=== PATIENT | female | born 1960 | race African-American/Black ===

== ENCOUNTER 2016-09-16 16:23 | Emergency (ER) | payer OTHER ==
[~2016-09-16] VITALS: Ht 157.5 cm; Wt 68.0 kg
[2016-09-16 16:36] VITALS: BP 159/78
--- NOTE | 2016-09-16 19:42 | NUR ---
AMBULATED TO ER BED 6
--- NOTE | 2016-09-16 19:45 | NUR ---
55 Y/O HERE C/O RIGHT KNEE PAIN X3 MONTHS AND RIGHT EAR PAIN X1 YEAR. NO S/S OF DISTRESS NOTED AT THIS MOMENT. ER MD AWARED OF IT.
[2016-09-16 20:41] VITALS: BP 144/72
--- NOTE | 2016-09-16 20:41 | NUR ---
PER ER MD PT STABLE FOR D/C, AWARED OF V/S. NO S/S OF DISTRESS PRESENT AT D/C. Written and verbal after care instructions given and explained. Patient alert, oriented and verbalized understanding of instructions. Ambulatory with steady gait. All questions addressed prior to discharge. ID band removed. Patient advised to follow up with PMD. Rx of PREDNISONE, CERUMEX, FLONASE AND NORCO given. Patient educated on indication of medication including possible reaction and side effects. Opportunity to ask questions provided and answered.
== END 2016-09-16 20:41 | disposition home or self-care (01) ==
LOC: MED 16:28
DX: M25.561 Pain in right knee (principal); H93.8X3 Other specified disorders of ear, bilateral; R09.81 Nasal congestion; Z88.6 Allergy status to analgesic agent; Z88.1 Allergy status to other antibiotic agents

== ENCOUNTER 2017-12-05 12:26 | Emergency (ER) | payer OTHER ==
[~2017-12-05] VITALS: Ht 157.5 cm; Wt 68.0 kg
--- NOTE | 2017-12-05 12:43 | NUR ---
Patient ambulated to bed 4. RN evaluating patient at bedside.
--- NOTE | 2017-12-05 12:45 | NUR ---
PATIENT PRESENTS TO ED WITH C/O RT EARACHE, NASAL CONGESTION,CANT BREATHE, RT KNEE PAIN, RASHES ALL OVER THE BODY, SORETHROAT FOR 2 MONTHS; DENIES N/V/D; SKIN IS PINK/WARM/DRY; AAOX4 WITH EVEN AND STEADY GAIT; LUNGS CLEAR BL; HR EVEN AND REGULAR; PT DENIES ANY FEVER, OR CP AT THIS TIME; PATIENT STATES PAIN OF 9/10 AT THIS TIME; VSS; PATIENT POSITIONED FOR COMFORT; HOB ELEVATED; BEDRAILS UP X2; BED DOWN. ER MD MADE AWARE OF PT STATUS.
--- NOTE | 2017-12-05 13:14 | NUR ---
Dr. Antonio evaluating patient at bedside.
[2017-12-05 13:27] VITALS: BP 165/71
--- NOTE | 2017-12-05 13:27 | NUR ---
Patient discharged with v/s stable. Written and verbal after care instructions given and explained. Patient alert, oriented and verbalized understanding of instructions. Ambulatory with steady gait. All questions addressed prior to discharge. ID band removed. Patient advised to follow up with PMD. Rx of prednisone, diphenhydramine, norco given. Patient educated on indication of medication including possible reaction and side effects. Opportunity to ask questions provided and answered.
== END 2017-12-05 13:27 | disposition home or self-care (01) ==
LOC: MED 12:26
DX: G89.29 Other chronic pain (principal); R09.81 Nasal congestion; M25.561 Pain in right knee; Z88.6 Allergy status to analgesic agent; Z88.1 Allergy status to other antibiotic agents; Z90.89 Acquired absence of other organs
CPT/HCPCS: 99283

== ENCOUNTER 2018-08-20 09:50 | Emergency (ER) | payer OTHER ==
[~2018-08-20] VITALS: Ht 157.5 cm; Wt 72.6 kg
[2018-08-20 10:05] VITALS: BP 159/74
[2018-08-20] MEDS ORDERED: predniSONE 20 MG TAB PO ONE (10:30)
[2018-08-20 10:56] VITALS: BP 148/76
== END 2018-08-20 10:57 | disposition home or self-care (01) ==
LOC: MED 09:50
DX: G89.29 Other chronic pain (principal); M25.561 Pain in right knee; R06.02 Shortness of breath; H61.21 Impacted cerumen, right ear; Z88.1 Allergy status to other antibiotic agents
CPT/HCPCS: 99283; J7512

== ENCOUNTER 2019-02-11 17:20 | Emergency (ER) | payer OTHER ==
[~2019-02-11] VITALS: Ht 157.5 cm; Wt 68.0 kg
[2019-02-11 17:32] VITALS: BP 143/77
--- NOTE | 2019-02-11 17:45 | NUR ---
C/O GENERALIZED WEAKNESS X2 MONTH, STATED RIGHT EAR PAIN, DIFFICULTY BREATHING, LEFT KNEE PAIN, BODY ACHES. DENIES N/V/D; SKIN IS PINK/WARM/DRY; AAOX4 WITH EVEN AND STEADY GAIT; LUNGS CLEAR BL; HR EVEN AND REGULAR; PT DENIES ANY FEVER, CP, OR COUGH AT THIS TIME; PATIENT STATES PAIN OF 10/10 AT THIS TIME; VSS; PATIENT POSITIONED FOR COMFORT; HOB ELEVATED; BEDRAILS UP X2; BED DOWN. ER MD MADE AWARE OF PT STATUS.
[2019-02-11 18:34] LABS: APPEARANCE,URINE CLEAR (CLEAR); BILIRUBIN,URINE NEGATIVE (NEGATIVE); BLOOD, URINE NEGATIVE (NEGATIVE); COLOR,URINE YELLOW (YELLOW); LEUKOCYTE ESTERASE ,URINE NEGATIVE (NEGATIVE); NITRITE, URINE NEGATIVE (NEGATIVE); UGLUCOSE NEGATIVE (NEGATIVE)
[2019-02-11 18:37] LABS: BASOPHILS # (AUTO) 0.1 K/uL (0.00-0.22); BASOPHILS % (AUTO) 1.2 % (0.0-2.0); EOSINOPHILS # (AUTO) 0.7 K/uL (0-0.4); EOSINOPHILS % (AUTO) 10.4 % (0.0-4.0); HEMATOCRIT 46.4 % (36-48); LYMPHOCYTES # (AUTO) 2.5 K/uL (2.5-16.5); LYMPHOCYTES % (AUTO) 37.5 % (20.5-51.1); MEAN CORPUSCULAR HEMOGLOBIN 28 pg (27-31); MEAN CORPUSCULAR HGB CONC 32 g/dL (33-37); MEAN CORPUSCULAR VOLUME 87.2 fL (80-94); MONOCYTES # (AUTO) 0.8 K/uL (0.8-1.0); MONOCYTES % (AUTO) 11.2 % (1.7-9.3); NEUTROPHILS # (AUTO) 2.7 K/uL (1.8-7.7); NEUTROPHILS % (AUTO) 39.7 % (42.2-75.2); PLATELET COUNT (AUTO) 286 K/uL (140-450); RED BLOOD CELL COUNT(AUTO) 5.33 MIL/uL (4.20-5.40); RED CELL DISTRIBUTION WIDTH 14.2 % (11.6-13.7); WHITE BLOOD COUNT (AUTO) 6.7 K/uL (4.8-10.8)
[2019-02-11 18:43] LABS: ANION GAP 9.5 (8-16); CARBON DIOXIDE 28.7 mmol/L (21-32); CREATININE 0.8 mg/dL (0.6-1.3); POTASSIUM 4.2 mmol/L (3.5-5.1)
[2019-02-11 18:50] LABS: ALBUMIN 3.4 g/dL (3.4-5.0); TOTAL BILIRUBIN 0.4 mg/dL (0.0-1.0)
[2019-02-11 18:52] LABS: PROTHROMBIN TIME 9.1 secs (10.8-13.4)
--- NOTE | 2019-02-11 19:10 | NUR ---
ASSUMED CARE OF PT FROM STEVEN AGUAYO
[2019-02-11] MEDS ORDERED: predniSONE 20 MG TAB PO ONE (19:45)
--- NOTE | 2019-02-11 20:20 | NUR ---
PT IV REMOVED. TIP INTACT. BLEEDING CONTROLLED.
[2019-02-11 20:27] VITALS: BP 103/48
--- NOTE | 2019-02-11 20:28 | NUR ---
Patient discharged with v/s stable. Written and verbal after care instructions given and explained. Patient alert, oriented and verbalized understanding of instructions. Ambulatory with steady gait. All questions addressed prior to discharge. ID band removed. Patient advised to follow up with PMD. Rx of AUGMENTIN AND PREDNISONE given. Patient educated on indication of medication including possible reaction and side effects BY DR BRO, PT DC BY DR BRO. Opportunity to ask questions provided and answered.
== END 2019-02-11 20:20 | disposition home or self-care (01) ==
LOC: MED 17:20
DX: J01.90 Acute sinusitis, unspecified (principal); M25.561 Pain in right knee; F17.210 Nicotine dependence, cigarettes, uncomplicated; Z88.1 Allergy status to other antibiotic agents; Z88.6 Allergy status to analgesic agent
CPT/HCPCS: 36415; 71045; 80053; 81003; 83880; 84484; 85025; 85610; 85730; 93005; 99284; J7512; Q0092

== ENCOUNTER 2019-06-15 15:50 | Emergency (ER) | payer OTHER ==
[~2019-06-15] VITALS: Ht 157.5 cm; Wt 70.8 kg
[2019-06-15 16:07] VITALS: BP 157/97
--- NOTE | 2019-06-15 16:11 | NUR ---
ASSISTED PT TO WAIT IN THE LOBBY AND INFORMED PT WILL CALL HER IN WHEN A BED IS AVAILABLE.
[2019-06-15] MEDS ORDERED: SODIUM CHLORIDE FLUSH 10 ML SYR IVF STA (16:17)
[2019-06-15 16:40] LABS: BASOPHILS # (AUTO) 0.1 K/uL (0.00-0.22); BASOPHILS % (AUTO) 1.9 % (0.0-2.0); EOSINOPHILS # (AUTO) 0.6 K/uL (0-0.4); EOSINOPHILS % (AUTO) 9.9 % (0.0-4.0); HEMOGLOBIN 14.9 g/dL (12.0-16.0); LYMPHOCYTES # (AUTO) 1.8 K/uL (2.5-16.5); LYMPHOCYTES % (AUTO) 31.1 % (20.5-51.1); MEAN CORPUSCULAR HEMOGLOBIN 29 pg (27-31); MEAN CORPUSCULAR HGB CONC 32 g/dL (33-37); MEAN CORPUSCULAR VOLUME 88.2 fL (80-94); MONOCYTES # (AUTO) 0.6 K/uL (0.8-1.0); MONOCYTES % (AUTO) 11.3 % (1.7-9.3); NEUTROPHILS # (AUTO) 2.6 K/uL (1.8-7.7); NEUTROPHILS % (AUTO) 45.8 % (42.2-75.2); PLATELET COUNT (AUTO) 249 K/uL (140-450); RED BLOOD CELL COUNT(AUTO) 5.22 MIL/uL (4.20-5.40); WHITE BLOOD COUNT (AUTO) 5.7 K/uL (4.8-10.8)
[2019-06-15 17:01] LABS: ANION GAP 13.2 (8-16); CARBON DIOXIDE 28.9 mmol/L (21-32); CREATININE 0.9 mg/dL (0.6-1.3); POTASSIUM 4.1 mmol/L (3.5-5.1)
[2019-06-15 17:15] LABS: ALBUMIN 3.7 g/dL (3.4-5.0); TOTAL BILIRUBIN 0.4 mg/dL (0.0-1.0)
[2019-06-15 18:05] LABS: APPEARANCE,URINE CLEAR (CLEAR); BILIRUBIN,URINE NEGATIVE (NEGATIVE); BLOOD, URINE NEGATIVE (NEGATIVE); COLOR,URINE YELLOW (YELLOW); LEUKOCYTE ESTERASE ,URINE NEGATIVE (NEGATIVE); NITRITE, URINE NEGATIVE (NEGATIVE); UGLUCOSE NEGATIVE (NEGATIVE)
--- NOTE | 2019-06-15 18:54 | NUR ---
PT TAKEN TO BED 5.
--- NOTE | 2019-06-15 19:04 | NUR ---
58 Y/O F PRESENTS TO ER C/O EPIGASTRIC PAIN AND NASAL CONGESTION. PER PT "I TOOK SOME BAKING SODA AND BURPED AND FELT BETTER." DENIES ANY PAIN AT THIS TIME. PAIN 0/10. PT ALSO C/O OF NASAL CONGESTION. PT CURRENTLY HAS TISSUES IN MOUTH NOSTRILS. PT STATES "I AM ONLY HERE FOR PREDNISONE AND ANTIBIOTICS THAT'S WHAT I COME HERE FOR ALL THE TIME." HOB ELEVATED, BED IN LOWEST POSITION, BED RAIL UP X1. WAITING FOR ERMD TO EVALUATE PT. ALLERGIES: ASPIRIN AND KEFLEX MED HX: NONE
--- NOTE | 2019-06-15 19:14 | NUR ---
TRANSFER OF CARE REPORT GIVEN TO DEDE FUNEZ
[2019-06-15] MEDS ORDERED: FAMOTIDINE 20 MG TAB PO ONE (19:45)
[2019-06-15] MEDS ORDERED: predniSONE 20 MG TAB PO ONE (19:45)
[2019-06-15 19:56] VITALS: BP 145/88
--- NOTE | 2019-06-15 19:56 | NUR ---
PT DISCHARGED BY DR BRO, PAPERWORK PROVIDED. RX PREDNISONE, NEXIUM, AUGMENTIN. EDUCATED PT REGARDING MEDICATIONS AND S/E. EDUCATED PT REGARDING D/C DIAGNOSIS AND INSTRUCTIONS. PT VERBALIZED UNDERSTANDING OF TEACHING. TOLD PT TO FOLLOW UP WITH PCP AND WHEN TO RETURN TO ED. PT VSS. ALL QUESTIONS ANSWERED.
== END 2019-06-15 19:56 | disposition home or self-care (01) ==
LOC: MED 15:50
DX: J06.9 Acute upper respiratory infection, unspecified (principal); K21.9 Gastro-esophageal reflux disease without esophagitis; E11.9 Type 2 diabetes mellitus without complications; F17.200 Nicotine dependence, unspecified, uncomplicated; Z88.1 Allergy status to other antibiotic agents; Z88.6 Allergy status to analgesic agent; Z71.6 Tobacco abuse counseling
CPT/HCPCS: 36415; 80053; 81003; 83690; 85025; 99283; J7512

== ENCOUNTER 2020-07-23 11:27 | Emergency (ER) | payer OTHER ==
[~2020-07-23] VITALS: Ht 157.5 cm; Wt 68.0 kg
[2020-07-23 12:00] VITALS: BP 169/99
--- NOTE | 2020-07-23 12:05 | NUR ---
PT C/O CONGESTION AND R ARM PAIN X2 DAYS. PT STATES SHE SLEPT WRONG ON HER ARM AND NOW HAS LIMITED MOBILITY AND PAIN NEAR THE SHOULDER JOINT. NO SLURRED SPEECH OR FACIAL DROOP NOTED, BUE/BLE STRENGTH STRONG AND EQUAL. PT STATES SHE WAS CURRENTLY TAKING PREDNISONE FOR A SINUS INFECTION.
[2020-07-23 15:00] VITALS: BP 169/99
--- NOTE | 2020-07-23 15:00 | NUR ---
Patient discharged with v/s stable. Written and verbal after care instructions given and explained. Patient alert, oriented and verbalized understanding of instructions. Ambulatory with steady gait. All questions addressed prior to discharge. ID band removed. Patient advised to follow up with PMD. Rx of NAPROXEN, CLARITIN & PREDNISONE given. Patient educated on indication of medication including possible reaction and side effects. Opportunity to ask questions provided and answered.
== END 2020-07-23 15:00 | disposition home or self-care (01) ==
LOC: MED 11:27
DX: M75.31 Calcific tendinitis of right shoulder (principal); E11.9 Type 2 diabetes mellitus without complications; K21.9 Gastro-esophageal reflux disease without esophagitis; Z88.1 Allergy status to other antibiotic agents; Z88.6 Allergy status to analgesic agent
CPT/HCPCS: 73030; 99283

== ENCOUNTER 2020-12-20 10:56 | Emergency (ER) | payer OTHER ==
[~2020-12-20] VITALS: Ht 157.5 cm; Wt 52.2 kg
[2020-12-20 11:01] VITALS: BP 107/65
--- NOTE | 2020-12-20 11:07 | NUR ---
Pt ambulated to ER bed 4.
--- NOTE | 2020-12-20 11:20 | NUR ---
PATIENT PRESENTS TO ED WITH C/O DARK BROWN EMESIS AND DARK COLORED FECES . PT STATES LAST BM 2 DAYS AGO AND LAST EMESIS YESTERDAY . DENIES N/V/D; SKIN IS PINK/WARM/DRY; AAOX4 WITH EVEN AND STEADY GAIT; LUNGS CLEAR BL; HR EVEN AND REGULAR; PT DENIES ANY FEVER, CP, SOB, OR COUGH AT THIS TIME; PATIENT STATES PAIN OF 0/10 AT THIS TIME; VSS; PATIENT POSITIONED FOR COMFORT; HOB ELEVATED; BEDRAILS UP X2; BED DOWN. ER MD MADE AWARE OF PT STATUS.
[2020-12-20] MEDS ORDERED: NACL 0.9% 1,000 ML IV ONE (11:30)
[2020-12-20] MEDS ORDERED: ONDANSETRON 4 MG/2 ML VIAL IVP ONE (11:30)
--- NOTE | 2020-12-20 11:35 | NUR ---
Dr. Charles is evaluating the patient at bedside.
--- NOTE | 2020-12-20 11:45 | NUR ---
TRIED 3X IV INSERTION, UNABLE TO INSERT IV, PT REFUSED ANY MORE TRIES, NOTIFIED .
[2020-12-20 11:50] LABS: BASOPHILS % (AUTO) 0.4 % (0.0-2.0); EOSINOPHILS # (AUTO) 0.5 K/uL (0-0.4); EOSINOPHILS % (AUTO) 4.6 % (0.0-4.0); HEMATOCRIT 27.9 % (36-48); LYMPHOCYTES % (AUTO) 20.3 % (20.5-51.1); MEAN CORPUSCULAR HEMOGLOBIN 28 pg (27-31); MEAN CORPUSCULAR HGB CONC 32 g/dL (33-37); MEAN CORPUSCULAR VOLUME 85.6 fL (80-94); MONOCYTES # (AUTO) 0.8 K/uL (0.8-1.0); MONOCYTES % (AUTO) 7.7 % (1.7-9.3); NEUTROPHILS # (AUTO) 6.7 K/uL (1.8-7.7); PLATELET COUNT (AUTO) 228 K/uL (140-450); RED BLOOD CELL COUNT(AUTO) 3.26 MIL/uL (4.20-5.40); RED CELL DISTRIBUTION WIDTH 15.4 % (11.6-13.7)
[2020-12-20] MEDS ORDERED: ONDANSETRON 4 MG ODT PO ONE (11:50)
--- NOTE | 2020-12-20 12:01 | NUR ---
URINE AND COVID OLIMPIA SWAB COLLECTED, SENT TO LAB.
[2020-12-20 12:05] LABS: ALBUMIN 2.9 g/dL (3.4-5.0); CARBON DIOXIDE 30.5 mmol/L (21-32); CREATININE 0.8 mg/dL (0.6-1.3); POTASSIUM 4.5 mmol/L (3.5-5.1); TOTAL BILIRUBIN 0.1 mg/dL (0.0-1.0)
[2020-12-20 12:30] LABS: APPEARANCE,URINE CLEAR (CLEAR); BILIRUBIN,URINE NEGATIVE (NEGATIVE); BLOOD, URINE NEGATIVE (NEGATIVE); COLOR,URINE YELLOW (YELLOW); LEUKOCYTE ESTERASE ,URINE TRACE (NEGATIVE); NITRITE, URINE NEGATIVE (NEGATIVE); PH,URINE 5.5 (5.0-9.0); UGLUCOSE NEGATIVE (NEGATIVE)
[2020-12-20 12:59] LABS: RBC,URINE 0-5 /HPF (0-5)
[2020-12-20] MEDS ORDERED: ONDA4TAB PO (13:15)
[2020-12-20 13:33] VITALS: BP 107/65
== END 2020-12-20 13:37 | disposition home or self-care (01) ==
LOC: MED 10:56
DX: R11.14 Bilious vomiting (principal); Z88.6 Allergy status to analgesic agent; Z88.1 Allergy status to other antibiotic agents; Z20.822 Contact with and (suspected) exposure to COVID-19
CPT/HCPCS: 36415; 80053; 81001; 83690; 85025; 87086; 87426; 99283; Q0162

== ENCOUNTER 2021-05-10 11:30 | Emergency (ER) | payer OTHER ==
[~2021-05-10] VITALS: Ht 157.5 cm; Wt 64.4 kg
[~2021-05-10 11:30] MED LIST: ONDA4TAB PO
[2021-05-10 11:42] VITALS: BP 148/84
--- NOTE | 2021-05-10 12:07 | NUR ---
DR. ALMODOVAR BEDSIDE EVALUATING PT
--- NOTE | 2021-05-10 12:15 | NUR ---
60 Y FEMALE C/O WORSENING RASHES X 2 MONTHS. + PRURITUS -DISCHARGE. DENIES FEVER. 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 PT WENT TO URGENT CARE, CULTURE DONE BUT STILL AWAITING RESULTS. PRESCRIBED WITH KEFLEX BUT PT UNCOMPLIANT. OBVIOUS SIGNS OF DRY FLAKING SIGN NOTED OVER ENTIRE BODY. PT IS ALSO COMPLAINING OF HER BREAST BEING ENLARGED AND RED. PMH: NONE PMH: NONE ALLERGIES: ASPIRIN, CEPHALEXIN
[2021-05-10] MEDS ORDERED: predniSONE 20 MG TAB PO ONE (12:20)
[2021-05-10] MEDS ORDERED: HYDROcodone/APAP 5/325 MG 1 TAB TAB PO ONE (12:20)
--- NOTE | 2021-05-10 12:34 | NUR ---
PT WAITING IN LOBBY FOR PAPERWORK.
[2021-05-10] MEDS ORDERED: TRIA0.029 TP (12:42)
[2021-05-10] MEDS ORDERED: PRED20TA5 PO (12:42)
[2021-05-10] MEDS ORDERED: DIPH25TA53 PO (12:42)
[2021-05-10] MEDS ORDERED: BACI1PAC6 TP (12:42)
[2021-05-10] MEDS ORDERED: TRAM50TA1 PO (13:00)
[2021-05-10 13:09] VITALS: BP 148/84
--- NOTE | 2021-05-10 13:09 | NUR ---
Patient discharged with v/s stable. Written and verbal after care instructions given and explained. Patient alert, oriented and verbalized understanding of instructions. Ambulatory with steady gait. All questions addressed prior to discharge. ID band removed. Patient advised to follow up with PMD. Rx of TRAMADOL, BACITRACIN, BENADRYL, PREDNISONE, AND TRIAMCINOLONE ACETONIDE given. Patient educated on indication of medication including possible reaction and side effects. Opportunity to ask questions provided and answered.
== END 2021-05-10 13:09 | disposition home or self-care (01) ==
LOC: MED 11:30
DX: L30.9 Dermatitis, unspecified (principal); N64.4 Mastodynia; Z88.1 Allergy status to other antibiotic agents; Z88.2 Allergy status to sulfonamides; Z79.899 Other long term (current) drug therapy
CPT/HCPCS: 99284; J7512; Q0163

== ENCOUNTER 2023-08-30 17:44 | Emergency (ER) | payer SELFPAY ==
[~2023-08-30] VITALS: Ht 162.6 cm; Wt 63.5 kg
[~2023-08-30 17:44] MED LIST changes: +BACI-418 TP; +DIPH25TA53 PO; +PRED20TA5 PO; +TRAM-748 PO; +TRIA0.029 TP
[2023-08-30 18:10] VITALS: BP 180/98; PULSE 72; RESP 18; TEMP 99; O2SAT 98
[2023-08-30] MEDS ORDERED: PRED20TA5 PO (18:39)
[2023-08-30] MEDS ORDERED: HYD1C TP (18:39)
[2023-08-30] MEDS ORDERED: OFLO5SOL27 BOTH EARS (18:39)
[2023-08-30] MEDS ORDERED: SULF-59 PO (18:39)
== END 2023-08-30 18:56 | disposition home or self-care (01) ==
LOC: MED 17:44
DX: H60.93 Unspecified otitis externa, bilateral (principal); H60.543 Acute eczematoid otitis externa, bilateral; I10 Essential (primary) hypertension; Z79.82 Long term (current) use of aspirin; Z88.8 Allergy status to other drugs, medicaments and biological substances; Z79.899 Other long term (current) drug therapy
CPT/HCPCS: 99283